=== PATIENT | female | born 1965 | race Caucasian/White ===

== ENCOUNTER → 2021-05-04 | Emergency (ER) | payer SELFPAY ==
[~2021-05-04] VITALS: Ht 157.5 cm; Wt 56.7 kg
[~2021-05-04] MED LIST: HYDR-4209 PO; LIDOCAINE 1%-EPI 1:100,000 20 ML VIAL ONE; SODIUM BICARBONATE 5 ML VIAL ONE
--- NOTE | 2021-05-04 22:16 | NUR ---
CAME IN [facility] C/O SLIP AND FALL, GLF, PAIN IN ELBOW. TO BED 2. CONNECTED TO MONITOR.
--- NOTE | 2021-05-04 22:30 | NUR ---
AT [facility] PLACING SUTURES
[2021-05-04] MEDS: LIDOCAINE 1%-EPI 1:100,000 20 ML VIAL TP ONE (22:45)
[2021-05-04] MEDS: SODIUM BICARBONATE 5 ML VIAL MC ONE (22:45)
--- NOTE | 2021-05-04 22:54 | NUR ---
Patient discharged to home in stable condition. Written and verbal after care instructions given. Patient verbalizes understanding of instruction. RX GIVEN. bandaid over sutures. ambulatory with a steady gait.
[2021-05-04 22:56] VITALS: BP 105/80
== END | disposition home or self-care (01) ==
LOC: ER 19:23
DX: S51.011A Laceration without foreign body of right elbow, initial encounter (principal); W01.0XXA Fall on same level from slipping, tripping and stumbling without subsequent striking against object, initial encounter; Y93.89 Activity, other specified; Y92.89 Other specified places as the place of occurrence of the external cause; Y99.8 Other external cause status
CPT/HCPCS: 12001; 99283; J3490 ×2

== ENCOUNTER 2021-05-31 06:57 | Emergency (ER) | payer SELFPAY ==
[~2021-05-31] VITALS: Ht 157.5 cm; Wt 68.0 kg
[~2021-05-31 06:57] MED LIST changes: -LIDOCAINE 1%-EPI 1:100,000 20 ML VIAL ONE; -SODIUM BICARBONATE 5 ML VIAL ONE
--- NOTE | 2021-05-31 07:00 | NUR ---
Called. NO Response
--- NOTE | 2021-05-31 07:15 | NUR ---
Called. NO Response
[2021-05-31 07:22] VITALS: BP 131/92
--- NOTE | 2021-05-31 07:22 | NUR ---
BIBS c/o sinus congestion/pressure/BASILIO/sore throat/cough x5d. vitals are within normal limits. Dr villagran at bedside for eval.
[2021-05-31] MEDS ORDERED: IBUP-1955 PO (07:48)
[2021-05-31] MEDS ORDERED: BENZ-13 PO (07:48)
--- NOTE | 2021-05-31 08:12 | NUR ---
COVID PCR SWAB DONE AND SENT TO LAB
--- NOTE | 2021-05-31 08:15 | NUR ---
Patient discharged to home in stable condition. Written and verbal after care instructions given. Patient verbalizes understanding of instruction.
== END 2021-05-31 08:17 | disposition home or self-care (01) ==
LOC: ER 06:59
DX: J06.9 Acute upper respiratory infection, unspecified (principal); R00.0 Tachycardia, unspecified; Z20.822 Contact with and (suspected) exposure to COVID-19; F12.90 Cannabis use, unspecified, uncomplicated; Z79.899 Other long term (current) drug therapy
CPT/HCPCS: 93005 ×2; 99284; C9803; U0003

== ENCOUNTER 2021-06-07 02:57 | Emergency (ER) | payer SELFPAY ==
[~2021-06-07] VITALS: Ht 157.5 cm; Wt 72.6 kg
[~2021-06-07 02:57] MED LIST changes: +BENZ-13 PO; +IBUP-1955 PO
--- NOTE | 2021-06-07 03:20 | NUR ---
PABLITO LOCKE AT PT'S BEDSIDE
[2021-06-07] MEDS ORDERED: HYDROCODONE/APAP 10/325MG TABLET ONE (03:28)
[2021-06-07] MEDS ORDERED: ONDANSETRON 4 MG TAB.RAPDIS ONE (03:29)
[2021-06-07] MEDS ORDERED: ONDANSETRON 4 MG TAB.RAPDIS SL ONE (03:30)
[2021-06-07] MEDS ORDERED: HYDROCODONE/APAP 10/325MG TABLET PO ONE (03:30)
--- NOTE | 2021-06-07 03:35 | NUR ---
COVID ANTIGEN SWAB COLLECTED AND SENT TO LAB
--- NOTE | 2021-06-07 03:36 | NUR ---
PT TAKEN TO CT VIA W/C
[2021-06-07] MEDS ORDERED: HYDR-4209 PO (04:19)
[2021-06-07] MEDS ORDERED: CYCL10TA9 PO (04:19)
--- NOTE | 2021-06-07 04:35 | NUR ---
Patient discharged to home in stable condition. Written and verbal after care instructions given. Patient verbalizes understanding of instruction. pt ambulatory with a steady gait
[2021-06-07 05:00] VITALS: BP 148/81
== END 2021-06-07 04:35 | disposition home or self-care (01) ==
LOC: ER 03:00
DX: R07.89 Other chest pain (principal); Z20.822 Contact with and (suspected) exposure to COVID-19; Z79.899 Other long term (current) drug therapy
CPT/HCPCS: 71046; 87426; 99284; C9803; Q0162